=== PATIENT | female | born 1995 | race Caucasian/White ===

== ENCOUNTER 2019-03-16 13:00 | Emergency (ER) | payer BC, MEDICAID ==
[~2019-03-16] VITALS: Ht 162.6 cm; Wt 74.8 kg
[~2019-03-16 13:00] MED LIST: CEPH-570 PO
[2019-03-16] MEDS ORDERED: CITA10TA9 PO (13:18)
[2019-03-16] MEDS ORDERED: KETOROLAC TROMETHAMINE 30 MG INJ IVP ONE (13:30)
[2019-03-16] MEDS ORDERED: IV NORMAL SALINE 500 ML BAG IV ONE (13:30)
[2019-03-16] MEDS ORDERED: METOCLOPRAMIDE HCL 10 MG/2 ML VIAL IV ONE (13:30)
[2019-03-16] MEDS ORDERED: METOCLOPRAMIDE HCL 10 MG/2 ML VIAL ONE (13:37)
--- NOTE | 2019-03-16 13:52 | NUR ---
IV Toradol on hold for now until test result is back. Patient is resting comfortably on gurney. A friend and family are at bedside, pending urine specimen. Urine cup provided. Clean catch urine was requested from patient.
[2019-03-16 14:28] LABS: *BILIRUBIN,URIN NEGATIVE (NEGATIVE); *BLOOD, URINE NEGATIVE (NEGATIVE); *COLOR,URINE YELLOW (YELLOW); *KETONES,URINE NEGATIVE (NEGATIVE); *UROBILINOGEN,URINE 0.2 E.U./dl (NORMAL); LEUKOCYTE ESTERASE ,URINE 1+ (NEGATIVE); NITRITE, URINE NEGATIVE (NEGATIVE); UGLUCOSE NEGATIVE (NEGATIVE)
[2019-03-16 14:31] LABS: *URINE HCG, QUAL NEGATIVE (NEGATIVE)
[2019-03-16 14:36] LABS: *CLARITY,URINE SLIGHTLY HAZY (CLEAR)
[2019-03-16 14:37] LABS: BACTERIA,URINE FEW /HPF (NONE SEEN); RBC,URINE 0-3 /HPF (0-3); SQUAMOUS EPITHELIAL CELL,UR MODERATE /HPF (NONE SEEN)
[2019-03-16] MEDS ORDERED: KETOROLAC TROMETHAMINE 60 MG INJ IM ONE ×2 (14:42→14:43)
--- NOTE | 2019-03-16 14:56 | NUR ---
Patient is resting comfortably on gurney while laughing with visitors. PATIENT IS PAIN FREE AT THIS TIME.
--- NOTE | 2019-03-16 15:02 | NUR ---
IV removed. Catheter intact and site benign. Pressure and 4x4 gauze applied to site. No bleeding noted. Patient discharged to home in stable conditon & brisk steady gait. Written and verbal after care instructions given to patient and family. Patient and family verbalized understanding of instructions.
== END 2019-03-16 15:11 | disposition home or self-care (01) ==
LOC: ER 13:00
DX: G43.909 Migraine, unspecified, not intractable, without status migrainosus (principal); F17.200 Nicotine dependence, unspecified, uncomplicated; Z88.2 Allergy status to sulfonamides; Z79.899 Other long term (current) drug therapy
CPT/HCPCS: 81000; 81001; 84703; 87086; 96374; 96375; 99283; J1885; J2765; A4663; J7030

== ENCOUNTER 2019-10-12 00:03 | Emergency (ER) | payer BC, MEDICAID ==
[~2019-10-12] VITALS: Ht 162.6 cm; Wt 74.8 kg
[~2019-10-12 00:03] MED LIST changes: +CITA10TA9 PO
[2019-10-12 00:59] LABS: BASOPHILS % (AUTO) 0.8 % (0.0-2.0); EOSINOPHILS # (AUTO) 0.2 K/uL (0.0-0.7); EOSINOPHILS % (AUTO) 2.6 % (0.0-7.0); HEMATOCRIT 39.1 % (31.2-41.9); HEMOGLOBIN 13.3 g/dL (10.9-14.3); LYMPHOCYTES # (AUTO) 3.3 K/uL (20.0-40.0); LYMPHOCYTES % (AUTO) 50.6 % (20.5-51.5); MEAN CORPUSCULAR HEMOGLOBIN 30.3 uug (24.7-32.8); MEAN CORPUSCULAR HGB CONC 34 g/dL (32.3-35.6); MEAN CORPUSCULAR VOLUME 88.8 fL (75.5-95.3); MONOCYTES # (AUTO) 0.3 K/uL (2.0-10.0); MONOCYTES % (AUTO) 5.2 % (0.0-11.0); NEUTROPHILS # (AUTO) 2.7 K/uL (1.8-8.9); NEUTROPHILS % (AUTO) 40.8 % (38.5-71.5); PLATELET COUNT (AUTO) 231 K/uL (179-408); WHITE BLOOD COUNT (AUTO) 6.5 K/uL (3.8-11.8)
[2019-10-12 01:03] LABS: CREATININE 0.8 mg/dL (0.6-1.3); POTASSIUM 3.6 mmol/L (3.5-5.1)
[2019-10-12 01:16] LABS: BILIRUBIN,DIRECT 0.1 mg/dL (0.0-0.2); BILIRUBIN,TOTAL 0.4 mg/dL (0.2-1.0); THYROID STIMULATING HORMONE 4.328 mIU/mL (0.358-3.740); TOTAL PROTEIN, SERUM 8.2 g/dL (6.4-8.2)
[2019-10-12 01:35] LABS: *BILIRUBIN,URIN NEGATIVE (NEGATIVE); *BLOOD, URINE NEGATIVE (NEGATIVE); *CLARITY,URINE CLEAR (CLEAR); *COLOR,URINE YELLOW (YELLOW); *KETONES,URINE NEGATIVE (NEGATIVE); *UROBILINOGEN,URINE 0.2 E.U./dl (NORMAL); LEUKOCYTE ESTERASE ,URINE NEGATIVE (NEGATIVE); NITRITE, URINE NEGATIVE (NEGATIVE); UGLUCOSE NEGATIVE (NEGATIVE)
[2019-10-12 01:48] LABS: *URINE HCG, QUAL NEGATIVE (NEGATIVE)
[2019-10-12 01:50] LABS: *AMPHETAMINE, URINE NEGATIVE (NEGATIVE); *BARBITURATE, URINE NEGATIVE (NEGATIVE); *CANNABINOID, URINE NEGATIVE (NEGATIVE); *COCCAINE, URINE NEGATIVE (NEGATIVE); *OPIATE, URINE NEGATIVE (NEGATIVE); *PHENCYCLIDINE SCREEN,URINE NEGATIVE (NEGATIVE)
[2019-10-12 02:28] VITALS: BP 122/71
--- NOTE | 2019-10-12 02:28 | NUR ---
Patient discharged to home in stable conditon. Written and verbal after care instructions given. Patient verbalizes understanding of instructions. AMBULATORY W/ STABLE GAIT ALL BELONGINGS W/ PT
== END 2019-10-12 02:29 | disposition home or self-care (01) ==
LOC: ER 00:11
DX: R00.2 Palpitations (principal); R94.6 Abnormal results of thyroid function studies; F41.9 Anxiety disorder, unspecified; F17.200 Nicotine dependence, unspecified, uncomplicated; Z88.2 Allergy status to sulfonamides; Z79.899 Other long term (current) drug therapy
CPT/HCPCS: 36415; 80307; 84443; 84703; 85025; 93005; A4663

== ENCOUNTER 2021-05-27 09:27 | Emergency (ER) | payer MEDICAID ==
[~2021-05-27] VITALS: Ht 165.1 cm; Wt 83.9 kg
[2021-05-27 10:03] LABS: *BILIRUBIN,URIN NEGATIVE (NEGATIVE); *BLOOD, URINE NEGATIVE (NEGATIVE); *CLARITY,URINE CLEAR (CLEAR); *COLOR,URINE YELLOW (YELLOW); *KETONES,URINE NEGATIVE (NEGATIVE); *UROBILINOGEN,URINE 0.2 E.U./dl (NORMAL); LEUKOCYTE ESTERASE ,URINE TRACE (NEGATIVE); NITRITE, URINE NEGATIVE (NEGATIVE); PH,URINE 6.5 (5.0-8.0); UGLUCOSE NEGATIVE (NEGATIVE)
[2021-05-27 10:30] LABS: *URINE HCG, QUAL NEG (NEGATIVE)
--- NOTE | 2021-05-27 10:55 | NUR ---
us tech at bedside.
[2021-05-27] MEDS ORDERED: IBUP-1957 PO (12:20)
--- NOTE | 2021-05-27 12:22 | NUR ---
Patient discharged to home in stable condition. Written and verbal after care instructions given. Patient verbalizes understanding of instructions. Stressed follow up or return to ER for worsening s/s.
[2021-05-27 13:22] LABS: BACTERIA,URINE FEW /HPF (NONE SEEN); RBC,URINE 0-3 /HPF (0-3); SQUAMOUS EPITHELIAL CELL,UR MODERATE /HPF (NONE SEEN)
== END 2021-05-27 12:23 | disposition home or self-care (01) ==
LOC: ER 09:27
DX: R10.9 Unspecified abdominal pain (principal); Z88.2 Allergy status to sulfonamides; G40.909 Epilepsy, unspecified, not intractable, without status epilepticus; Z84.1 Family history of disorders of kidney and ureter; Z79.899 Other long term (current) drug therapy; F41.9 Anxiety disorder, unspecified
CPT/HCPCS: 76770; 84703; A4663

== ENCOUNTER 2021-09-27 18:36 | Emergency (ER) | payer SELFPAY ==
[~2021-09-27 18:36] MED LIST changes: +IBUP-1957 PO
--- NOTE | 2021-09-27 18:50 | NUR ---
Attempted to triage, pt was not found in ER waiting room.
== END 2021-09-28 01:43 | disposition left against medical advice (07) ==
LOC: ER 18:37
DX: Z53.21 Procedure and treatment not carried out due to patient leaving prior to being seen by health care provider (principal)

== ENCOUNTER 2022-06-23 20:08 | Emergency (ER) | payer SELFPAY ==
--- NOTE | 2022-06-23 21:00 | NUR ---
Patient was just called to be triaged at this time due to short staffing in the ER and no beds available at this time but patient was not present in the waiting room or outside of ER.
--- NOTE | 2022-06-23 21:45 | NUR ---
Patient was called to be triaged but was not present in the waiting room.
--- NOTE | 2022-06-23 22:30 | NUR ---
Patient was called but not present. PATIENT WAS NOT TRIAGED OR SEEN BY [facility].
== END 2022-06-23 22:30 | disposition left against medical advice (07) ==
LOC: ER 20:11
DX: Z53.21 Procedure and treatment not carried out due to patient leaving prior to being seen by health care provider (principal)